=== PATIENT | male | born 1960 | race Caucasian/White ===

== ENCOUNTER 2021-12-24 02:43 | Emergency (ER) | payer OTHER ==
[2021-12-24 03:58] LABS: BASOPHIL 0.3 % (0-2); EOSINOPHIL 0.1 % (0-5); HCT 46.6 % (42.0-52.0); HGB 15.8 g/dl (13.2-18.0); LYMPHOCYTE 9.7 % (15-48); MCH 29.4 pg (25.0-31.0); MCHC 33.9 g/dL (32.0-36.0); MCV 86.8 fL (78.0-100.0); MONOCYTE 4.8 % (0-12); MPV 9.5 fL (6.0-9.5); NEUTROPHIL 84.7 % (41-80); NRBC 0; PLT 382 K/uL (150-400); RBC 5.37 M/uL (4.70-6.00); RDW 12.6 % (11.5-14.0); WBC 14.5 K/uL (4.0-10.5)
[2021-12-24 04:14] LABS: ALBUMIN 3.8 g/dL (3.4-5.0); BILIRUBIN - TOTAL 1.2 mg/dL (0.2-1.0); BUN/CREAT RATIO (CALC) 9.6 RATIO; CREATININE 1.67 mg/dL (0.67-1.17); GLOBULIN (CALCULATION) 3.6 g/dL; POTASSIUM 3.9 mmol/L (3.5-5.1); TOTAL PROTEIN 7.4 g/dL (6.4-8.2)
[2021-12-24 04:16] LABS: BILIRUBIN NEGATIVE (NEGATIVE); BLOOD 3+ Ery/uL (NEGATIVE); CLARITY SLIGHTLY HAZY (CLEAR); COLOR YELLOW (YELLOW); GLUCOSE (U) 2+ mg/dL (NORMAL); LEUKOCYTES NEGATIVE Leu/uL (NEGATIVE); NITRITE NEGATIVE (NEGATIVE); PROTEIN TRACE (LOW) mg/dL (NEGATIVE); UROBILINOGEN 0.2 mg/dL (0.2-1.0)
[2021-12-24 04:23] LABS: BACTERIA TRACE; URINARY RBC 20-50; URINARY WBC RARE
[2021-12-24] MEDS ORDERED: FLOMAX0.4 MG PO (06:08)
== END 2021-12-24 06:20 | disposition home or self-care (01) ==
LOC: FER 02:43
PROVIDERS: Emergency Medicine
DX: N13.2 Hydronephrosis with renal and ureteral calculous obstruction (principal); N17.9 Acute kidney failure, unspecified; Z87.442 Personal history of urinary calculi
CPT/HCPCS: 36415; 80053; 81001; 85025; J1885; J2405; J7030